=== PATIENT | male | born 1995 | race Caucasian/White ===

== ENCOUNTER 2019-05-04 22:40 | Emergency (ER) | payer SELFPAY ==
[~2019-05-04] VITALS: Ht 175.3 cm; Wt 75.9 kg
[2019-05-04] MEDS ORDERED: IBUPROFEN 600MG TABLET PO ONE (23:45)
[2019-05-05 02:14] VITALS: BP 135/75
== END 2019-05-05 02:15 | disposition home or self-care (01) ==
LOC: ER 22:40
DX: S66.912A Strain of unspecified muscle, fascia and tendon at wrist and hand level, left hand, initial encounter (principal); S20.212A Contusion of left front wall of thorax, initial encounter; M25.512 Pain in left shoulder; M25.522 Pain in left elbow; V09.9XXA Pedestrian injured in unspecified transport accident, initial encounter; Y93.89 Activity, other specified; Y92.89 Other specified places as the place of occurrence of the external cause; Y99.8 Other external cause status
CPT/HCPCS: 71101; 73030; 73080; 73110; 99283